=== PATIENT | male | born 1975 | race Caucasian/White ===

== ENCOUNTER → 2019-07-28 | Day surgery (SDC) | payer OTHER | END | disposition home or self-care (01) | LOC: AMB-ENDOS 06:30 → CIR.AMB 12:30 → EDSTATUS 07-30 12:30 → SURG 07-30 12:30 | DX: K62.89 Other specified diseases of anus and rectum (principal); K64.1 Second degree hemorrhoids; Z12.11 Encounter for screening for malignant neoplasm of colon ==

== ENCOUNTER 2019-09-10 06:10 | Inpatient (IN) | payer OTHER ==
[~2019-09-10] VITALS: Ht 177.8 cm; Wt 131.5 kg
[~2019-09-10 06:10] MED LIST: POLY119PG PO; PREVACID15 MG PO
[2019-09-12] MEDS ORDERED: ULTRACET PO (13:50)
== END 2019-09-12 14:37 | disposition home or self-care (01) | DRG 355 ==
LOC: CIR.AMB 06:10 → SURG 20:18
PROVIDERS: ADMIT Surgery; ATTEND Surgery
PROC: 0KXL0Z6 Transfer Left Abdomen Muscle, Transverse Rectus Abdominis Myocutaneous Flap, Open Approach (ICD-10-PCS; 2019-09-10)
PROC: 0KXK0Z6 Transfer Right Abdomen Muscle, Transverse Rectus Abdominis Myocutaneous Flap, Open Approach (ICD-10-PCS; 2019-09-10)
PROC: 0WUF0JZ Supplement Abdominal Wall with Synthetic Substitute, Open Approach (ICD-10-PCS; principal; 2019-09-10 10:00)
DX: K43.0 Incisional hernia with obstruction, without gangrene (principal); I10 Essential (primary) hypertension